=== PATIENT | male | born 1960 | race Caucasian/White ===

== ENCOUNTER 2017-12-05 14:41 | Inpatient (IN) | payer MEDICAID, OTHER ==
[2017-12-05 14:50] VITALS: O2SAT 98
--- NOTE | 2017-12-05 16:32 | ED PDOC ---
HPI: Psych/Substance Abuse Time Seen by Provider: 12/05/17 16:21 Chief Complaint (Nursing): Psychiatric Evaluation Chief Complaint (Provider): Crisis evaluation History Per: Patient Additional Complaint(s): Pt sent from [facility] for evaluation. Pt reports depression X 1 month , no suicidal ideation, no homicidal ideation. Past Medical History Reviewed: Nursing Documentation, Vital Signs Vital Signs: Last Vital Signs Temp 98.3 F 12/05/17 14:44 Pulse 75 12/05/17 14:44 Resp 16 12/05/17 14:44 BP 133/89 12/05/17 14:44 Pulse Ox 98 12/05/17 14:44 - Medical History PMH: Depression, Diabetes - Family History Family History: States: Unknown Family Hx - Social History Current smoker - smoking cessation education provided: No Alcohol: None - Immunization History Hx Tetanus Toxoid Vaccination: No Hx Influenza Vaccination: No Hx Pneumococcal Vaccination: No - Home Medications Home Medications: Ambulatory Orders Medication Instructions Recorded Atorvastatin [Lipitor] 20 mg PO DAILY 12/05/17 Colchicine [Mitigare] 0.6 mg PO DAILY 12/05/17 DiphenhydrAMINE [Benadryl] 50 mg PO HS 12/05/17 Docusate Sodium [Stool Softener] 12/05/17 Ergocalciferol (Vitamin D2) 50,000 unit PO QWK 12/05/17 [Vitamin D2] Fluticasone Propionate [Children's 1 spray IN DAILY 12/05/17 Flonase Allergy Rlf] Hydrocortisone [Proctosol-Hc] 1 applic TP BID 12/05/17 LORazepam [Ativan] 1 mg PO HS 12/05/17 Sennosides [Senna] 8.6 mg PO BID 12/05/17 Sertraline HCl [Zoloft] 100 mg PO DAILY 12/05/17 metFORMIN [glucOPHAGE] 500 mg PO DAILY 12/05/17 - Allergies Allergies/Adverse Reactions: Allergies Allergy/AdvReac Type Severity Reaction Status Date / Time No Known Allergies Allergy Verified 12/05/17 14:44 Review of Systems Constitutional: Negative for: Fever Cardiovascular: Negative for: Chest Pain Respiratory: Negative for: Cough Neurological: Negative for: Headache Psych: Positive for: Depression. 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 Negative for: Motor/Sensory Deficits - Laboratory Results Result Diagrams: 12/05/17 20:54 12/05/17 20:54 - ECG Interpretation Of ECG: NSR @ 77, no ST-T changes. O2 Sat by Pulse Oximetry: 98 Pulse Ox Interpretation: Normal - Radiology X-Ray: Read By Radiologist X-Ray Interpretation: No Acute Disease Medical Decision Making Medical Decision Makin yo male with depression. - Crisis evaluation - labs - EKG - CXR MEDICAL CLEARANCE: Pt medically cleared for psych admission. Disposition - Clinical Impression Clinical Impression: Depression - Patient ED Disposition Is Patient to be Admitted: Yes - Disposition Disposition Time: 21:38 Condition: STABLE Forms: [employer] (Thai) - Pt Status Changed To: Hospital Disposition Of: Inpatient - Admit Certification Admit to Inpatient:: After my assessment, the patient will require hospitalization for at least two midnights. This is because of the severity of symptoms shown, intensity of services needed, and/or the medical risk in this patient being treated as an outpatient. - POA Present On Arrival: None
[2017-12-05 20:58] LABS: BASO # 0.1 K/uL (0.0-0.2); BASO % 0.8 % (0.0-2.0); EOS # 0.1 K/uL (0.0-0.7); EOS % 1.5 % (0.0-4.0); HEMOGLOBIN 15.2 g/dL (12.0-18.0); LYMPH # 2.6 K/uL (1.0-4.3); LYMPH % 32.2 % (20.0-40.0); MEAN CELL VOLUME 88.9 fl (80.0-94.0); MEAN CORPUSCULAR HEMOGLOBIN 30.5 pg (27.0-31.0); MEAN CORPUSCULAR HGB CONC 34.3 g/dL (33.0-37.0); MEAN PLATELET VOLUME 11.2 fl (7.2-11.7); MONO # 0.7 K/uL (0.0-0.8); NEUT # 4.6 K/uL (1.8-7.0); NEUT % 56.5 % (50.0-75.0); NRBC % 0.1 % (0.0-0.0); RBC 4.99 Mil/uL (4.40-5.90); RED CELL DISTRIBUTION WIDTH 13.3 % (11.5-14.5); WHITE BLOOD COUNT 8.1 K/uL (4.8-10.8)
[2017-12-05 21:10] LABS: ALB/GLOB RATIO 1.4 (1.0-2.1); ALBUMIN 4.4 g/dL (3.5-5.0); ALT/SGPT 41 U/L (21-72); AST/SGOT 38 U/L (17-59); BLOOD UREA NITROGEN 8 mg/dl (9-20); CALCIUM 9.4 mg/dL (8.4-10.2); GFR AFRICAN-AMERICAN > 60; GFR NON-AFRICAN AMERICAN > 60
[2017-12-05 21:19] LABS: BENZODIAZEPINES, UR NEGATIVE (NEGATIVE); URINE BILIRUBIN NEGATIVE (NEGATIVE); URINE BLOOD NEGATIVE (NEGATIVE); URINE CLARITY CLEAR (Clear); URINE COLOR STRAW (YELLOW); URINE GLUCOSE (UA) NEG (Normal); URINE LEUKOCYTE ESTERASE NEG Leu/uL (Negative); URINE PROTEIN NEGATIVE (NEGATIVE); URINE UROBILINOGEN 0.2-1.0 mg/dL (0.2-1.0)
[2017-12-05] MEDS ORDERED: Potassium Chloride 20 mEq ER Tab PO STA (21:23)
[2017-12-05 21:29] LABS: BARBITURATES, UR NEGATIVE (NEGATIVE); OPIATES, UR NEGATIVE (NEGATIVE); PHENCYCLIDINE, UR NEGATIVE (NEGATIVE)
[2017-12-05] MEDS ORDERED: Potassium Chloride 20 mEq ER Tab PO ONE (22:10)
[2017-12-05] MEDS ORDERED: DiphenhydrAMINE 50 mg/ml Inj IM PRN (23:08)
[2017-12-05] MEDS ORDERED: Magnesium Hydroxide Susp 30 ml UD PO PRN (23:08)
[2017-12-05] MEDS ORDERED: Alum-Mag Hydrox-Simethicone Susp (30 mL) PO PRN (23:08)
--- NOTE | 2017-12-05 23:38 | PCM.BM ---
<Rusty Holbrook P - Last Filed: 12/05/17 23:37> Treatment Plan Problems - Problems identified on initial assessmt Feelings of Worthlessness Date Initiated: 12/05/17 Time Initiated: 23:37 Assessment reference: NA Status: Active Anxiety Date Initiated: 12/05/17 Time Initiated: 23:37 Assessment reference: NA Status: Active Treatment assets and liabiliti Patient Assests: cooperative, negotiates basic needs Patient Liabilities: physical pain, financial problems, poor support system, medical problems - Milieu Protocol Maintain good personal hygiene: daily Encourage regular showers, daily Remind patient to perform daily oral care, daily Assist patient to perform ADL's Conduct patient checks and document Observation sheet: Q15 minutes Maintain personal safety: every shift Educate patient to report safety concerns to staff, every shift Monitor environment for contraband/sharps Medication safety: Monitor for expected outcome, potential side effects: every shift, Assess barriers to learning: every shift, Assess readiness for medication education: every shift <Davidson Phelps J - Last Filed: 12/07/17 16:58> Family Contact Family involvement: Famliy/SO not involved Family contact: Patient declines to allow family contact at present Family contact name: Pt denied. - Outside Agency Agency 1 Care involvment: Following patient during stay, Information-sharing Agency contact name: Kinsey Gilliland ([phone], ) cell phones. Agency contact number: [facility] [phone] - Goals for Treatment Patient goals for treatment: "I want to go to [facility]." Patient's family/SO goals for treatment: Unknown. Discharge/Continuing Care - Education Needs Education Needs: Patient Medication, Patient Diagnosis/Disease Process, Patient Coping Skills, Patient Anger Management skills, Patient Community resources, Patient Personal Hygiene/Grooming, Patient Aftercare Safety Plan - Discharge Discharge Criteria: Tolerates medication w/o severe side effects, Free of Suicidal thoughts, Normal sleep pattern, Ability to care for self, Reduction of target symptoms Discharge to:: Skilled Nursing - Treatment Team Participation Patient/Family/SO Statement: 12/07/17 16:56 Pt is fixated on being referred to long-term treatment at [facility] or [facility]. Pt unable to answer most questions with more than one word responses or "I don' t know." Pt verbalized he has a son and could not verbalize any specific goals. Discussed with Family/SO: Yes Was Patient/Family/SO present at Treatment Team Meeting: No
--- NOTE | 2017-12-06 08:54 | CARD ---
APPROVED REPORT EKG Measurement Heart [id number] <Conclusion> Normal sinus rhythm Normal ECG
[2017-12-06 09:03] LABS: BLOOD UREA NITROGEN 8 mg/dl (9-20); CALCIUM 9.2 mg/dL (8.4-10.2); GFR AFRICAN-AMERICAN > 60; GFR NON-AFRICAN AMERICAN > 60; HDL CHOLESTEROL 54 MG/DL (30-70)
--- NOTE | 2017-12-06 09:11 | RAD ---
HISTORY: Admission COMPARISON: No prior. FINDINGS: LUNGS: No active pulmonary disease. PLEURA: No significant pleural effusion identified, no pneumothorax apparent. CARDIOVASCULAR: Normal. OSSEOUS STRUCTURES: No significant abnormalities. VISUALIZED UPPER ABDOMEN: Normal. OTHER FINDINGS: None. IMPRESSION: No active disease.
[2017-12-06 09:16] LABS: LDL CHOLESTEROL 35 mg/dL (0-129)
[2017-12-06] MEDS: COLCHICINE 0.6 MG CAPSULE PO SCH (09:16)
[2017-12-06 09:35] LABS: T4 8.66 ug/dl (5.5-11.0)
--- NOTE | 2017-12-06 19:01 | PCM.PSYCH ---
Initial Psychiatric Evaluation - Initial Psychiatric Evaluation Type of Admission: Voluntary Legal Status: Capacity Chief Complaint (in patient's own words): I am tired of living Patient's Reaction to Hospitalization: pt requested help History of Present Illness and Precipitating Events: pt is 57ys old male with unclear previous psychiatric history as the pt is a poor historian, pt however reported being {sick } for a long time since he got , pt on day of evaluation in ER was seeing his psychiatrist and reported having suicidal ideations with plan to jump infront of the train pt currently [facility] in a [facility] , has been in [facility] for 8months and since he was recently discharged, has been severely depressed, reported poor sleep, anhedonia very low energy and constantly tired and fatigued , no interest in any activity and spending his time in bed [facility], pt reported feeling hopeless and helpless without any motivation to live , pt continues to report active suicidal ideation on the unit stating he would suffocate himself, pt almost catatonic, very under productive speech , anxious, no eye contact with telegraphic 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 Current Medications: Active Medications Generic Name Dose Route Start Last Admin Trade Name Freq PRN Reason Stop Dose Admin Acetaminophen 650 mg 12/05/17 23:08 Tylenol 325mg Tab PO Q4 PRN pain level 4-7 Al Hydrox/Mg Hydrox/Simethicone 30 ml 12/05/17 23:08 Maalox Plus 30 Ml PO Q4 PRN Dyspepsia Aripiprazole 5 mg 12/07/17 09:00 Abilify PO DAILY DOT Atorvastatin Calcium 20 mg 12/06/17 09:00 12/06/17 09:15 Lipitor PO 20 mg DAILY DOT Administration Clonazepam 0.25 mg 12/06/17 17:00 12/06/17 17:13 Klonopin PO 0.25 mg TID DOT Administration Colchicine 0.6 mg 12/06/17 09:00 12/06/17 09:16 Colchicine PO 0.6 mg DAILY DOT Administration Diphenhydramine HCl 50 mg 12/05/17 23:08 Benadryl IM Q6 PRN Extrapyramidal S/S Unable PO Diphenhydramine HCl 50 mg 12/05/17 23:08 Benadryl PO Q6 PRN Extrapyramidal Symptoms Diphenhydramine HCl 50 mg 12/05/17 23:10 Benadryl PO HS PRN Sleep Docusate Sodium 100 mg 12/06/17 09:00 12/06/17 17:07 Colace PO 100 mg BID DOT Administration Haloperidol 5 mg 12/05/17 23:08 Haldol PO Q4 PRN Agitation Haloperidol Lactate 5 mg 12/05/17 23:08 Haldol IM Q4 PRN Agitation, Unable to Take PO Lorazepam 2 mg 12/05/17 23:08 Ativan IM Q4 PRN Anxiety/Agitation,Unable PO Lorazepam 2 mg 12/05/17 23:08 Ativan PO Q4 PRN Anxiety/Agitation Magnesium Hydroxide 30 ml 12/05/17 23:08 Milk Of Magnesia PO HS PRN Constipation Metformin HCl 500 mg 12/06/17 09:00 12/06/17 09:16 Glucophage PO 500 mg DAILY DOT Administration Sennosides 8.6 mg 12/06/17 09:00 12/06/17 17:07 Senokot Tab PO 8.6 mg BID DOT Administration Trazodone HCl 50 mg 12/06/17 22:00 Desyrel PO HS DOT Venlafaxine HCl 37.5 mg 12/07/17 09:00 Effexor PO DAILY DOT Past Psychiatric History - Past Psychiatric History Explanation of prior treatment: pt states has been depressed for a long time, unspecified number of hospitalizations History of ETOH/Drug Use: denied Pertinent Medical Hx (Current Medical&Sleep Prob, Allergies): Allergies Allergy/AdvReac Type Severity Reaction Status Date / Time No Known Allergies Allergy Verified 12/05/17 14:44 Atorvastatin [Lipitor] 20 mg PO DAILY 12/05/17 Colchicine [Mitigare] 0.6 mg PO DAILY 12/05/17 DiphenhydrAMINE [Benadryl] 50 mg PO HS 12/05/17 Docusate Sodium [Stool Softener] 12/05/17 Ergocalciferol (Vitamin D2) [Vitamin D2] 50,000 unit PO QWK 12/05/17 Fluticasone Propionate [Children's Flonase Allergy Rlf] 1 spray IN DAILY Hydrocortisone [Proctosol-Hc] 1 applic TP BID 12/05/17 LORazepam [Ativan] 1 mg PO HS 12/05/17 Sennosides [Senna] 8.6 mg PO BID 12/05/17 Sertraline HCl [Zoloft] 100 mg PO DAILY 12/05/17 metFORMIN [glucOPHAGE] 500 mg PO DAILY 12/05/17 Mental Status Examination - Personal Presentation Personal Presentation: Looks older than stated age Additional comments: unkempt, disheveled poor eye contact - Affect Affect: Constricted, Depressed - Motor Activity Motor Activity: Psychomotor Retardation - Reliability in Providing Information Reliability in Providing Information: Poor, due to alteration in thoughts, Poor , due to altered mood - Speech Speech: Irrelevant Additional comments: severely underproductive - Mood Mood: Depressed, Anxious - Formal Thought Process Formal Thought Process: Circumstantial Additional comments: pt denied perceptual disturbances yet appears internally preoccupied - Obsessions/Compulsions Obsessions: Yes Description of Obsession/Compulsion: pt constantly requesting transfer to 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
[2017-12-07] MEDS: COLCHICINE 0.6 MG CAPSULE PO SCH (09:37)
--- NOTE | 2017-12-07 14:56 | PCM.PYCHPN ---
Psychiatric Progress Note - Psychiatric Progress Note Patient seen today, length of contact: pt evaluated discussed withteam chart reviewed Patient Chief Complaint: I want to be in [facility] or any mental health orderly I could not survive on my own any more Problems Identified/Issues Discussed: pt evaluated with treatment team, severely depressed, anhedonic, severe psychomotor retardation, speech extremely underproductive, poor eye contact pt anxious and dysphoric , mood reported very tired and requesting to be in bed , affect presenting as if in agony and extemely sad and constricted pt thought process is focused only on being transferred to [facility] in an obsessive form, pt reporting he would not be able to survive outside the hospital indicating he would jump infront of the train, when asked about suicidal ideations and plan in the hospital patient states I do not know maybe I would as I am tired of living this way. when asked about a plan pt pauses and not providing a clear answer pt nish poor historian unable to provide his psychiatric history possibly due to pseudodementia, due to depression presenting perplexed and confused transition social worker contacted assisted for more history and attempting to attain the records from [facility] pt appears internally preoccupied with thought blocking Medical Problems: pt states has been depressed for a long time, unspecified number of hospitalizations DSM 5 Symptoms Update: major depression recurrent severe with psychotic features Medication Change: Yes (increase effexor ) Medical Record Reviewed: Yes Mental Status Examination - Cognitive Function Orientation: Person, Place Memory: Impaired Attention: Poor Concentration: Poor Association: Loose Fund of Knowledge: Poor Decription of patient's judgement and insights: fair insight poor judgment - Mood Mood: Depressed, Anxious - Affect Affect: Constricted, Depressed - Speech Speech: Soft Additional comments: extremely underproductive - Formal Thought Process Formal Thought Process: Paranoia, Circumstantial Psychotic Thoughts and Behaviors: pt at times appears internally preoccupied , observed talking to self , denied command hallucinations - Suicidal Ideation Suicidal Ideation: No - Homicidal Ideation Homicidal Ideation: No Goal/Treatment Plan - Goal/Treatment Plan Need for Continued Stay: Remain at risks for inpatient hospitalization, Severe depression anxiety, Discharge may exacerbated symptoms Progress Toward Problem(s) and Goals/Treatment Plan: increase abilify to 5mg daily and increase gradually increase effexor to 37.5mg bid with plan to uptitrate , klonopin 0.25 mg tid trazodone 50mg qhs 1: 1 for suicide risk as pt continues to verbalize suicidal ideations will continue to attempt to retrieve records from [facility]
--- NOTE | 2017-12-08 08:52 | PCM.PYCHPN ---
Psychiatric Progress Note - Psychiatric Progress Note Patient seen today, length of contact: pt evaluated discussed withteam chart reviewed Patient Chief Complaint: pt has h/o severe depression presenting with psychomotor retardation and suicidal ideation .pt has remained very depressed with poor insight and need further stabilization Medication Change: Yes (increase effexor ) Medical Record Reviewed: Yes Mental Status Examination - Cognitive Function Orientation: Person, Place Memory: Impaired Attention: Poor Concentration: Poor Association: Loose Fund of Knowledge: Poor - Mood Mood: Depressed, Anxious - Affect Affect: Constricted, Depressed - Speech Speech: Soft - Formal Thought Process Formal Thought Process: Paranoia, Circumstantial - Suicidal Ideation Suicidal Ideation: No - Homicidal Ideation Homicidal Ideation: No Goal/Treatment Plan - Goal/Treatment Plan Need for Continued Stay: Remain at risks for inpatient hospitalization, Severe depression anxiety, Discharge may exacerbated symptoms Progress Toward Problem(s) and Goals/Treatment Plan: will increase abilify to 7 mg daily to stabilize the psychosis and depression .Disposition as per dr lynn.
--- NOTE | 2017-12-10 18:44 | PCM.PYCHPN ---
Psychiatric Progress Note - Psychiatric Progress Note Patient seen today, length of contact: pt evaluated discussed withteam chart reviewed Patient Chief Complaint: I do not know send me to [facility] Problems Identified/Issues Discussed: pt evaluated , dressed in hospital gown, unkempt, disheveled with severe motor retardation, no eye contact, speech very under productive and telegraphic, soft and slow, when asked if he continues to have suicidal thoughts pt answers he does not know but he could not tolerate living this way pt refusing to shower or to shave, refusing to be out of bed, almost catatonic, presenting with thought blocking , internally preoccupied pt continues to request to be 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 as he could not live on the outside, extremely melancholic and anhedonic pt unable to provide history or to identify triggers for his depression Medical Problems: pt states has been depressed for a long time, unspecified number of hospitalizations DSM 5 Symptoms Update: major depression severe recurrent with psychotic and melancholic features Medication Change: Yes (increase effexor ) Medical Record Reviewed: Yes Mental Status Examination - Cognitive Function Orientation: Person, Place Memory: Impaired Attention: Poor Concentration: Poor Association: Loose Fund of Knowledge: Poor - Mood Mood: Depressed, Anxious - Affect Affect: Constricted, Depressed - Speech Speech: Soft - Formal Thought Process Formal Thought Process: Paranoia, Circumstantial Psychotic Thoughts and Behaviors: pt presenting with thought blocking and melancholia - Suicidal Ideation Suicidal Ideation: No - Homicidal Ideation Homicidal Ideation: No Goal/Treatment Plan - Goal/Treatment Plan Need for Continued Stay: Remain at risks for inpatient hospitalization, Severe depression anxiety, Discharge may exacerbated symptoms Progress Toward Problem(s) and Goals/Treatment Plan: increase abilify to 10mg daily and increase gradually increase effexor to 110mg daily with plan to uptitrate , klonopin 0.25 mg tid trazodone 50mg qhs 1: 1 for suicide risk as pt continues to verbalize suicidal ideations will attempt to transfer pt for ECT treatment
[2017-12-11] MEDS ORDERED: Venlafaxine 37.5 mg ER Cap PO SCH (09:00)
[2017-12-11] MEDS ORDERED: Venlafaxine 75 mg ER Cap PO SCH (09:00)
--- NOTE | 2017-12-11 16:31 | PCM.PYCHPN ---
Psychiatric Progress Note - Psychiatric Progress Note Patient seen today, length of contact: pt evaluated discussed withteam chart reviewed Patient Chief Complaint: I want to go to [facility] Problems Identified/Issues Discussed: pt evaluated continues to be extremely anhedonic with psychomotor retardation, neglecting his personal hygiene with regression needind assistance with his ADL, S , pt continues to be focused on being transferred to [facility] hospital continues to verbalize suicdal ideation, when asked about the plan on the unit he pauses and refuses to answer, pt at times catatonic and mute, refusing to give consent for records from previous hospiatlization, refusing ECT,spendng his day in bed and needs a lot of encouragement to ambulate pt unable to provide history or to identify triggers for his depression Medical Problems: pt states has been depressed for a long time, unspecified number of hospitalizations DSM 5 Symptoms Update: major depression recurrent severe with melancholic features Medication Change: Yes (increase effexor ) Medical Record Reviewed: Yes Mental Status Examination - Cognitive Function Orientation: Person, Place Memory: Impaired Attention: Poor Concentration: Poor Association: Loose Fund of Knowledge: Poor - Mood Mood: Depressed, Anxious - Affect Affect: Constricted, Depressed - Speech Speech: Soft - Formal Thought Process Formal Thought Process: Paranoia, Circumstantial Psychotic Thoughts and Behaviors: pt presenting with thought blocking and melancholia - Suicidal Ideation Suicidal Ideation: No - Homicidal Ideation Homicidal Ideation: No Goal/Treatment Plan - Goal/Treatment Plan Need for Continued Stay: Remain at risks for inpatient hospitalization, Severe depression anxiety, Discharge may exacerbated symptoms Progress Toward Problem(s) and Goals/Treatment Plan: abilify 10mg daily and increase gradually increase effexor to 150mg daily with plan to uptitrate , klonopin 0.25 mg tid trazodone 50mg qhs 1: 1 for suicide risk as pt continues to verbalize suicidal ideations referr pt to be screened for higher level of care
--- NOTE | 2017-12-12 07:01 | CP.PCM.CON ---
History of Present Illness - History of Present Illness History of Present Illness: Attending: Dr Tinoco Reason for consult: Management of Diabetes, Mellitus and medical problems Chief Complaint: Depression HPI: 57 years old male whose Greek is poor, was admitted on 12/05/17 with reports of depression for one Month and now with Suicide Ideation. In the Psychiatric unit he has been complaining of pain to the medial aspect of the left foot, which showed no edema, nor erythema, no fever nor hx of trauma. PMH: DM II; Depression; Gout; left foot pain PSH: No Surgeries SH: No illegal drug use; NO Cigarette smoking; No Alcohol; Resides at a senior care FH: States: Unknown Family Hx Allergies: NKDA Medication: Reviewed Review of Systems - Review of Systems Review of Systems: Review of systems limited because of patients poor communication. - Constitutional Constitutional: absent: Anorexia, Chills, Fever, Headache - EENT Eyes: Requires Corrective Lenses. absent: Diplopia Ears: absent: Decreased Hearing, Ear Discharge, Ear Pain, Tinnitus Nose/Mouth/Throat: absent: Epistaxis, Nasal Congestion - Musculoskeletal Additional comments: Pain to the left foot medial aspect - Hematologic/Lymphatic Hematologic: absent: Easy Bleeding, Easy Bruising Past Patient History - Past Medical History & Family History Past Medical History?: Yes - Past Social History Chewing Tobacco Use: No Cigar Use: No Alcohol: None Home Situation {Lives}: Other - CARDIAC Hx Cardiac Disorders: Yes Hx Hypertension: Yes - PULMONARY Hx Respiratory Disorders: No - NEUROLOGICAL Hx Neurological Disorder: No - HEENT Hx HEENT Problems: Yes Other/Comment: wears bifocals - RENAL Hx Chronic Kidney Disease: No - ENDOCRINE/METABOLIC Hx Endocrine Disorders: Yes Hx Diabetes Mellitus Type 2: Yes - HEMATOLOGICAL/ONCOLOGICAL Hx Blood Disorders: No - INTEGUMENTARY Hx Dermatological Problems: No - MUSCULOSKELETAL/RHEUMATOLOGICAL Other/Comment: 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 - ANESTHESIA Hx Anesthesia: No Meds Allergies/Adverse Reactions: Allergies Allergy/AdvReac Type Severity Reaction Status Date / Time No Known Allergies Allergy Verified 12/05/17 14:44 - Medications Medications: Current Medications Acetaminophen (Tylenol 325mg Tab) 650 mg PO Q4 PRN PRN Reason: pain level 4-7 Last Admin: 12/12/17 00:57 Dose: 650 mg Al Hydrox/Mg Hydrox/Simethicone (Maalox Plus 30 Ml) 30 ml PO Q4 PRN PRN Reason: Dyspepsia Aripiprazole (Abilify) 10 mg PO DAILY [facility] Last Admin: 12/11/17 09:24 Dose: 10 mg Atorvastatin Calcium (Lipitor) 20 mg PO DAILY [facility] Last Admin: 12/11/17 09:26 Dose: 20 mg Colchicine (Colocrys) 0.6 mg PO DAILY [facility] Last Admin: 12/11/17 09:24 Dose: 0.6 mg Diphenhydramine HCl (Benadryl) 50 mg IM Q6 PRN PRN Reason: Extrapyramidal S/S Unable PO Diphenhydramine HCl (Benadryl) 50 mg PO Q6 PRN PRN Reason: Extrapyramidal Symptoms Diphenhydramine HCl (Benadryl) 50 mg PO HS PRN PRN Reason: Sleep Last Admin: 12/12/17 01:11 Dose: 50 mg Docusate Sodium (Colace) 100 mg PO BID [facility] Last Admin: 12/11/17 17:49 Dose: Not Given Haloperidol (Haldol) 5 mg PO Q4 PRN PRN Reason: Agitation Haloperidol Lactate (Haldol) 5 mg IM Q4 PRN PRN Reason: Agitation, Unable to Take PO Ibuprofen (Motrin Tab) 600 mg PO Q6 PRN PRN Reason: For Pain scale 4-10. Stop: 12/13/17 22:22 Last Admin: 12/11/17 22:49 Dose: 600 mg Magnesium Hydroxide (Milk Of Magnesia) 30 ml PO HS PRN PRN Reason: Constipation Metformin HCl (Glucophage) 500 mg PO DAILY [facility] Last Admin: 12/11/17 09:25 Dose: 500 mg Sennosides (Senokot Tab) 8.6 mg PO BID [facility] Last Admin: 12/11/17 17:47 Dose: 8.6 mg Trazodone HCl (Desyrel) 50 mg PO HS [facility] Last Admin: 12/11/17 21:25 Dose: 50 mg Venlafaxine HCl (Effexor Xr) 150 mg PO DAILY [facility] Physical Exam - Constitutional Appears: No Acute Distress - Head Exam Head Exam: ATRAUMATIC, NORMAL INSPECTION, NORMOCEPHALIC - Eye Exam Eye Exam: EOMI, Normal appearance Pupil Exam: NORMAL ACCOMODATION, PERRL - ENT Exam ENT Exam: Mucous Membranes Moist, Normal Exam - Neck Exam Neck exam: Positive for: Full Rom, Normal Inspection - Respiratory Exam Respiratory Exam: Clear to Auscultation Bilateral. absent: Rales, Rhonchi, Wheezes - Cardiovascular Exam Cardiovascular Exam: REGULAR RHYTHM, RRR, +S1, +S2 - GI/Abdominal Exam GI & Abdominal Exam: Normal Bowel Sounds, Soft. absent: Mass, Organomegaly, Tenderness - Rectal Exam Rectal Exam: Deferred - Extremities Exam Additional comments: Pain to themedial left foot , region of 1st great toe and the 1st metatarsal - Back Exam Back exam: NORMAL INSPECTION. absent: CVA tenderness (L), CVA tenderness (R) - Neurological Exam Neurological exam: Alert, CN II-XII Intact, Reflexes Normal - Psychiatric Exam Psychiatric exam: Flat Affect - Skin Skin Exam: Dry, Intact, Normal Color, Warm Results - Vital Signs Recent Vital Signs: Last Vital Signs Temp 97.4 F L 12/11/17 17:00 Pulse 72 12/11/17 17:00 Resp 18 12/11/17 17:00 BP 104/68 12/11/17 17:00 Pulse Ox 98 12/05/17 22:16 - Labs Result Diagrams: 12/05/17 20:54 12/06/17 08:36 Assessment & Plan - Assessment and Plan (Free Text) Assessment: #. DM II #. Diabetic Neuropathy #. Depression #. Gout Plan: 57 years old male whose Greek is poor, was admitted on 12/05/17 with reports of depression for one Month and now with Suicide Ideation. In the Psychiatric unit he has been complaining of pain to the medial aspect of the left foot, which showed no edema, nor erythema, no fever nor hx of trauma. #. DM II - Metformin - Regular insulin sliding scale according to Accucheck - HbA1c 6.8 on 12/06/17 #. Diabetic Neuropathy - Gabapentin #. Depression - Psychiatric Management #. Gout - Colchicine #. Code Status. - Date & Time Date: 12/12/17 Time: 07:01
[2017-12-12] MEDS ORDERED: Venlafaxine 150 mg ER Cap PO SCH (09:00)
[2017-12-12 10:19] LABS: INR 1.1 (0.9-1.2); PARTIAL THROMBOPLASTIN TIME 33.9 Seconds (25.6-37.1); PROTHROMBIN TIME 11.7 Seconds (9.8-13.1)
[2017-12-12 12:10] VITALS: BP 125/81; PULSE 20; RESP 20; TEMP 97.9
--- NOTE | 2017-12-12 12:10 | PCM.PYCHDC ---
Mental Status Examination - Mental Status Examination Orientation: Person, Place Memory: Intact, Recent Mood: Depressed, Anxious Affect: Constricted, Depressed Speech: Soft Attention: Poor Concentration: Poor Association: Loose Fund of Knowledge: Poor Formal Thought Process: Circumstantial Description of patient's judgement and insight: fair insight poor judgment Psychotic Thoughts and Behaviors: pt presenting with thought blocking and melancholia Suicidal Ideation: Yes Current Homicidal Ideation?: No Plan: jump infront of a train Discharge Summary - Discharge Note Reason for Hospitalization: pt is 57ys old male with unclear previous psychiatric history as the pt is a poor historian, pt however reported being {sick } for a long time since he got , pt on day of evaluation in ER was seeing his psychiatrist and reported having suicidal ideations with plan to jump infront of the train pt currently resides in a alf , has been in [facility] for 8months and since he was recently discharged, has been severely depressed, reported poor sleep, anhedonia very low energy and constantly tired and fatigued , no interest in any activity and spending his time in bed [facility], pt reported feeling hopeless and helpless without any motivation to live , pt continues to report active suicidal ideation on the unit stating he would suffocate himself, pt almost catatonic, very under productive speech , anxious, 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 Reason for request. 2. Findings. 3. Follow-up Summary of Hospital Course include:: 1. Description of specific treatment plan utilized for patients during their course of treatmen. 2. Summarize the time- course for resolution of acute symptoms and/or regressed behaviors. 3. Describe issues identified and worked on during hospitalization. 4. Describe medication utilized. 5. Describe medical problems identified and treated. 6. Reassessment of suicide risk Summary of Hospital Course: pt ion admission, was almost catatonic, dysphoric, depressed mood and affect, continued to verbalize suicidal ideations , neglecting personal hygiene, spending most time in bed, refusing to interact with staff and other patients, poor eye contact, thought blocking , with internal preoccupation pt was started on effexor which was uptitrated to 150mg daily and abilify which was uptitrated to 10mg daily, with poor response pt continued to be anhedonic, refusing to give consent for ECT and refusing to give consent to retreive previous records, refusing to give any information for family members for obtaining collateral information, pt continues to verbalize active suicidal ideations and plans and was constantly placed on 1: 1 observation for suicide risk pt needed higher level of care and was screened and accepted for involuntary admission at [facility] [place] - Final Diagnosis (DSM 5) Condition upon Discharge: STABLE 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
--- NOTE | 2017-12-12 13:33 | RAD ---
PROCEDURE: Left Foot Radiographs. HISTORY: Pain top first metatarsal and left great toe COMPARISON: None. FINDINGS: BONES: No evidence of acute displaced fracture nor dislocation. The osseous structures appear intact. No cortical destructive changes. JOINTS: Minimal hallux valgus deformity and minimal done degenerative changes 1st MTP joint. Slight lateral subluxation distal phalanx of the left great toe SOFT TISSUES: Normal. OTHER FINDINGS: None. IMPRESSION: No evidence of acute displaced fracture nor dislocation. Minimal DJD 1st MTP joint. Slight lateral subluxation distal phalanx left great toe
== END 2017-12-12 12:54 | DRG 430 ==
LOC: H.ER 14:41 → H.ERHOLD 21:38 → H.PSYCH 22:53
PROVIDERS: ADMIT Psychiatry & Neurology Psychiatry; ATTEND Psychiatry & Neurology Psychiatry
PROC: GZ3ZZZZ Medication Management (ICD-10-PCS; principal; 2017-12-05)
PROC: GZHZZZZ Group Psychotherapy (ICD-10-PCS; 2017-12-05)
PROC: GZ56ZZZ Individual Psychotherapy, Supportive (ICD-10-PCS; 2017-12-05)
DX: F33.3 Major depressive disorder, recurrent, severe with psychotic symptoms (principal); E11.40 Type 2 diabetes mellitus with diabetic neuropathy, unspecified; R45.851 Suicidal ideations; M10.9 Gout, unspecified; I10 Essential (primary) hypertension